=== PATIENT | male | born 1990 | race Caucasian/White ===

== ENCOUNTER 2023-12-27 06:04 | Emergency (ER) | payer BC, SELFPAY ==
[2023-12-27 06:05] VITALS: BMI 29.0
[2023-12-27 06:10] VITALS: BP 152/86
[2023-12-27] MEDS: DECADRON 10 MG IV (06:38)
[2023-12-27] MEDS: BENADRYL 50 MG IV (06:38)
[2023-12-27] MEDS: NSS 1000 IV (06:39)
[2023-12-27] MEDS: PEPCID 20 MG IV (06:39)
--- NOTE | 2023-12-27 07:02 | ED.GENMED ---
History of Present Illness
General
Chief Complaint: Allergic Reaction
Source: patient
Exam Limitations: none
Time Seen by Provider: 12/27/23 06:15
History of Present Illness
History of Present Illness:
33-year-old male stung by something to his left ear suddenly last evening. Swelling to the left ear some pain to the left ear major concern is he feels like his airway might be swollen on the left side overnight. Able to swallow but with some
pain. No fever or chills. No speech issues. No other complaints. No history of allergic reaction. No general hives or itching.
Past History
Past History
ED Past Medical History: None
ED Past Surgical History: Orthopedic
Review of Systems
Review of Systems
All Other Systems: Not applicable
Constitutional: Denies fever
Respiratory: Denies trouble breathing
Phy Exam
Physical Exam
Physical Exam:
GENERAL: Alert and oriented in no apparent distress
EYE: Orbits normal.
NECK: Supple, mild swelling towards the left mandible at the angle.
ENT: Pharynx without erythema. No uvula swelling. Airway clear clinically. No drooling or stridor. No trismus. Swelling and erythema to the left pinna. Canal normal. TM clear.
CARDIAC: Regular rate and rhythm without any obvious murmurs.
LUNGS: Clear breath sounds,normal
ABDOMEN: Soft, without focal tenderness or distention
NEUROLOGICAL: Alert and oriented , grossly non-focal
SKIN: Warm and dry, no hives or erythema
MUSCULOSKELETAL: No edema,no deformity.Good color
PSYCH: Normal and appropriate interaction.
Course
Orders/Labs/Results
Orders:
Orders
12/27/23 06:22
Cardiac Monitoring- Treatment ONCE
IV Insert/Care/Rem.- Treatment PRN
0.9% Sodium Chloride 1000 ml [Nss] 1,000 ml IV BOLUS
Dexamethasone Sod Phosphate [Decadron] 10 mg IV NOW STA
Diphenhydramine [Benadryl] 50 mg IV NOW STA
Famotidine [Pepcid] 20 mg IV NOW STA
Soft Tissue, Neck [CR Soft Tissue Neck ] Urgent
Comment:
Reason For Exam: Left neck swelling. Bee sting left ear
Pulse Ox/cont/shift [RESP] Stat
Quantity: 1
12/27/23 07:36
CeFAZolin 1 GRAM [Ancef] 1 gram in 5 ml IV NOW
Vital Signs
Initial and Last Documented VS:
Initial Vital Signs
Temp Pulse Resp BP Pulse Ox
98.3 F 98 16 152/86 100
12/27/23 06:10 12/27/23 06:10 12/27/23 06:10 12/27/23 06:10 12/27/23 06:10
Last Documented Vital Signs
Temp Pulse Resp BP Pulse Ox
98.2 F 71 17 107/66 99
12/27/23 09:03 12/27/23 09:03 12/27/23 09:03 12/27/23 09:03 12/27/23 09:03
MDM/Problems Addressed
Differential Diagnosis Includes:
Patient's reaction is a toxin reaction versus allergic reaction. Has some mild swelling of the left neck. However no drooling no stridor no trismus. Pulse ox is good. Lungs are clear and equal. Soft tissue lateral unremarkable. Will treat as
an allergic reaction with Benadryl H2 ivelisse and steroids. Do not feel racemic epinephrine will affect the symptoms. Likely has to hang in there with the swelling until the toxin is absorbed. Will observe for a few hours. Do not expect
significant improvement but just want to be sure his symptoms have not progressed.
*Radiology
Radiology exam reviewed: preliminary read by ED provider (Negative) and radiology read reviewed (Negative)
*Critical Care Note
Total Time (30-74mins, 75-104mins- exclusive of procedures): Not Applicable
Update Note
Update Note:
0715... Clinically is remained stable. No drooling no stridor. Vital signs stable. X-ray unremarkable. Highly doubt infectious component to this however with the erythema and swelling will cover.
0845.... Patient rechecked. Remains clinically stable. Stable vital signs. No drooling no stridor no trismus. Swelling has remained stable. Possibly some decreased erythema. Will continue observation
1115.... Patient is remained stable and is doing well. Swelling around the left mandible has essentially resolved. There is some mild erythema towards the left lateral neck. However again, no trismus stridor or drooling or airway issues. Patient
is stable for discharge to follow-up
ED Attending Note
-
Portions of this chart may have been created with voice recognition software.� Occasional wrong word or��sound alike� substitutions may have occurred due to the inherent limitations of voice recognition software.
Discharge Plan
Departure
Patient Disposition: Home (Routine Discharge)
Date of Disposition: 12/27/23
Time of Disposition: 11:15
Patient with high blood pressure during this ER visit?: No
Discharge Problem:
Suspect insect bite left ear, Secondary swelling and erythema
Instructions: Insect Bites and Stings ED
Prescriptions:
New
prednisone 50 mg tablet
50 mg PO DAILY Qty: 5 0RF
cephalexin 500 mg capsule
500 mg PO TID 7 Days Qty: 21 0RF
Referrals:
Mc Villalobos DO [Family Provider] - Follow up in 2-3 days
Activity Restrictions/Additional Instructions:
Your prescriptions were called to the pharmacy
Also take Benadryl and Pepcid
Keep your head elevated
Ice to the left facial area
Return sooner with increased pain swelling redness fever difficulty breathing or swallowing
Interventions
Interventions:
*Risk Screen - Suicide Last Done: 12/27/23 06:20
*General Assessment Last Done: 12/27/23 06:20
*Neglect/Abuse Screening Last Done: 12/27/23 06:20
ED- Fall Risk Assessment Last Done: 12/27/23 06:20
*ED COVID-19 Vaccine History Last Done: 12/27/23 06:20
ED- Cardiac Assessment Last Done: 12/27/23 06:18
ED- Pulmonary Assessment Last Done: 12/27/23 06:18
ED-Skin Assessment Last Done: 12/27/23 07:32
Discharge Date and Time
Print Language: DIVEHI
[2023-12-27] MEDS: ANCEF 5 IV (07:46)
[2023-12-27 09:03] VITALS: BP 107/66
[2023-12-27 11:30] VITALS: BP 120/70
== END 2023-12-27 11:31 | disposition home or self-care (01) ==
LOC: EMR 06:04
PROVIDERS: EMERGENCY PHYSICIAN Emergency Medicine; FAMILY PHYSICIAN Family Medicine
DX: R22.0 Localized swelling, mass and lump, head (principal); L53.9 Erythematous condition, unspecified
CPT/HCPCS: 99283; 70360

== ENCOUNTER 2024-11-25 13:24 | Emergency (ER) | payer BC, SELFPAY ==
[2024-11-25 13:31] VITALS: BP 137/79
--- NOTE | 2024-11-25 14:50 | ED.GENMED ---
History of Present Illness
General
Chief Complaint: Allergic Reaction
Source: patient
Exam Limitations: none
Time Seen by Provider: 11/25/24 14:28
Nursing documentation reviewed up to this point in time: agreed with
History of Present Illness
History of Present Illness:
Patient to ED with complaint of increasing pain, redness and swelling to right ant. thigh at site of bee sting. Bee sting occurred yesterday. Has had episodes in the past of large amt of swelling and erythema associated with stings. No history of
any respiratory issues. Brought self to ED for eval.
Past History
Past History
ED Past Medical History: None
ED Past Surgical History: Orthopedic
Review of Systems
Review of Systems
Allergies reviewed?: Yes
All Other Systems: ROS reviewed and negative except as documented in HPI and ROS
Constitutional: Reports no symptoms
EENT: Reports no symptoms
Respiratory: Reports no symptoms
Cardiac: Reports no symptoms
ABD/GI: Reports no symptoms
: Reports no symptoms
Musculoskeletal: Reports no symptoms
Skin: Reports other (Bee sting right ant thigh. large amt of erythema and swelling to thigh)
Neurological: Reports no symptoms
Psychiatric: Reports no symptoms
Phy Exam
General Physical Exam
General Presentation: well appearing and mild distress
General age: appears stated age
General Skin: warm and dry
General Habitus: normal
ENT Exam
ENT Exam: pharynx normal, neck supple, normocephalic and swallowing well
Cardiovascular Exam
Cardiovascular Exam: regular rate/rhythm and no edema
Pulmonary Exam
Pulmonary Exam: lungs clear, no respiratory distress and chest non tender
Musculoskeletal Exam
Musculoskeletal Exam: full ROM and neuro vasc intact
Skin Exam
Skin Exam: warm/dry and other (Bee sting right ant thigh. Large amt of erytnema and swelling to thigh. FUll ROM and sensation to leg. Pain with walking, bending due to swelling.)
Psychiatric Exam
Psychiatric Exam: normal mood/affect
Course
Orders/Labs/Results
Orders:
Orders
11/25/24 14:47
Prednisone [Deltasone] 40 mg PO NOW STA
Vital Signs
Initial and Last Documented VS:
Initial Vital Signs
Temp Pulse Resp BP Pulse Ox
98.4 F 89 16 137/79 100
11/25/24 13:31 11/25/24 13:31 11/25/24 13:31 11/25/24 13:31 11/25/24 13:31
Last Documented Vital Signs
Temp Pulse Resp BP Pulse Ox
98.4 F 89 16 137/79 100
11/25/24 13:31 11/25/24 13:31 11/25/24 13:31 11/25/24 13:31 11/25/24 13:31
*Pulse Oximetry
SaO2: 100
Oxygen Mode of Delivery: Room air
Patient hypoxic: no
*Critical Care Note
Total Time (30-74mins, 75-104mins- exclusive of procedures): Not Applicable
Update Note
Update Note:
Patient to ED for eval of erythema and swelling to right thigh at site of bee sting, consistent with inflammatory reaction. Swelling and erythema continues to expand. No respiratory issues. Will placeon PRednisone taper, first dose given in ED.
He is discharged home, given instructions on s/s to return to ED and he is agreeable to plan.
ED Attending Note
-
Portions of this chart may have been created with voice recognition software.� Occasional wrong word or��sound alike� substitutions may have occurred due to the inherent limitations of voice recognition software.
Discharge Plan
Departure
Patient Disposition: Home (Routine Discharge)
Date of Disposition: 11/25/24
Time of Disposition: 14:47
Patient with high blood pressure during this ER visit?: No
Condition: Good
Covid-19: Not Applicable
Discharge Problem:
Bee sting reaction
Instructions: Cold therapy for pain, Insect bites and stings - ED discharge instructions
Prescriptions:
New
prednisone 10 mg Tablet
See Rx Instructions .ROUTE .COMPLEX Qty: 30 0RF
Rx Instructions:
Take By Mouth:
40 mg daily x3 days, 30 mg daily x3 days,
20 mg daily x3 days, 10 mg daily x3 days.
No Action
prednisone 50 mg tablet
50 mg PO DAILY Qty: 5 0RF
cephalexin 500 mg capsule
500 mg PO TID 7 Days Qty: 21 0RF
Referrals:
Mc Villalobos DO [Family Provider, Family Practice]
Activity Restrictions/Additional Instructions:
Return to the emergency department immediately for any difficulty breathing or swallowing.
Interventions
Interventions:
*Risk Screen - Suicide Last Done: 11/25/24 13:32
*Neglect/Abuse Screening Last Done: 11/25/24 13:32
Discharge Date and Time
Print Language: SERBIAN
[2024-11-25] MEDS: DELTASONE 40 MG PO (15:12)
[2024-11-25 15:13] VITALS: BP 109/58
== END 2024-11-25 16:23 | disposition home or self-care (01) ==
LOC: EMR 13:24
PROVIDERS: EMERGENCY PHYSICIAN Student in an Organized Health Care Education/Training Program; FAMILY PHYSICIAN Family Medicine
DX: T63.441A Toxic effect of venom of bees, accidental (unintentional), initial encounter (principal); R22.41 Localized swelling, mass and lump, right lower limb; X58.XXXA Exposure to other specified factors, initial encounter
CPT/HCPCS: 99283

== ENCOUNTER 2025-02-24 12:01 | Emergency (ER) | payer BC, SELFPAY ==
[2025-02-24 12:13] VITALS: BP 133/78
--- NOTE | 2025-02-24 13:23 | ED.GENMED ---
History of Present Illness
General
Chief Complaint: Musculo-Skeletal Complaint
Source: patient
Time Seen by Provider: 02/24/25 13:12
History of Present Illness
History of Present Illness:
34-year-old male with no significant past medical history presents to the emergency department for evaluation after he fell for 2 separate popping sensations to his left bicep while lifting a piece of lumber out of his truck, states some mild
discomfort with pronation and supination as well as elbow flexion. No previous history of injury. Patient notes that there does not appear to be any obvious deformity the affected area. Patient is right-hand dominant.
Past History
Past History
ED Past Medical History: None
ED Past Surgical History: Orthopedic
Social History
Tobacco: Non-smoker
Alcohol: Occasional
Drug: None
Personal:
Living: with family
Employment: Employed
Review of Systems
Review of Systems
All Other Systems: ROS reviewed and negative except as documented in HPI and ROS
Phy Exam
Physical Exam
Physical Exam:
GENERAL: Alert , in no apparent distress
EYE: conjunctiva clear
Head: Normocephalic atraumatic
NECK: Supple,
ENT: mmm.
LUNGS: no acute respiratory distress
NEUROLOGICAL: Alert and oriented
SKIN: Warm and dry, skin intact. Small area of ecchymosis in the antecubital fossa no obvious deformity to the biceps brachii muscle, patient allows for full range of motion of the left upper extremity without difficulty but does have some
tenderness while performing pronation supination and elbow flexion. Extremity is otherwise warm and well-perfused and neurovascularly intact.
MUSCULOSKELETAL: well perfused.
PSYCH: Normal and appropriate interaction.
Scores
Heart Failure Risk
Heart Failure Risk Score: Not Applicable
Heart Score for Chest Pain Patients
STEMI patient?: Not applicable
Withdrawal Assessment of Alcohol
Withdrawal Assessment Completed?: Not applicable
Course
Orders/Labs/Results
Orders:
Orders
02/24/25 13:24
Sling Left-Treatment ONCE
Vital Signs
Initial and Last Documented VS:
Initial Vital Signs
Temp Pulse Resp BP Pulse Ox
99.3 F 84 18 133/78 98
02/24/25 12:13 02/24/25 12:13 02/24/25 12:13 02/24/25 12:13 02/24/25 12:13
Last Documented Vital Signs
Temp Pulse Resp BP Pulse Ox
99.3 F 84 18 133/78 98
02/24/25 12:13 02/24/25 12:13 02/24/25 12:13 02/24/25 12:13 02/24/25 13:24
MDM/Problems Addressed
Differential Diagnosis Includes:
Biceps muscle strain
Tendonopathy
Tendon rupture
No concern for fx/dislocation
MDM/Problems Addressed:
34-year-old male presenting the ER for evaluation of suspected biceps injury. Patient was lifting a heavy object out of his truck when injury occurred. No neurovascular abnormalities on exam. I did offer x-ray however patient declines which I
think is reasonable given I do not suspect any fracture or dislocation. Suspect muscle strain/tendon injury is most likely diagnosis. Will treat with a sling, NSAIDs, ice and outpatient information for orthopedics provided. Stable for discharge
home.
*Pulse Oximetry
SaO2: 98
Oxygen Mode of Delivery: Room air
Patient hypoxic: no
*Critical Care Note
Total Time (30-74mins, 75-104mins- exclusive of procedures): Not Applicable
ED Attending Note
-
Portions of this chart may have been created with voice recognition software.� Occasional wrong word or��sound alike� substitutions may have occurred due to the inherent limitations of voice recognition software.
Discharge Plan
Departure
Patient Disposition: Home (Routine Discharge)
Date of Disposition: 02/24/25
Time of Disposition: 13:23
Patient with high blood pressure during this ER visit?: No
Discharge Problem:
Traumatic injury of left biceps brachii muscle
Instructions: Biceps Tendon Rupture (DC)
Prescriptions:
No Action
prednisone 50 mg tablet
50 mg PO DAILY Qty: 5 0RF
cephalexin 500 mg capsule
500 mg PO TID 7 Days Qty: 21 0RF
prednisone 10 mg Tablet
See Rx Instructions .ROUTE .COMPLEX Qty: 30 0RF
Rx Instructions:
Take By Mouth:
40 mg daily x3 days, 30 mg daily x3 days,
20 mg daily x3 days, 10 mg daily x3 days.
Referrals:
Aime Candelario MD [Active, Orthopedics]
Fred Castillo MD [Active, Orthopedics]
Interventions
Interventions:
*Risk Screen - Suicide Last Done: 02/24/25 12:15
*General Assessment Last Done: 02/24/25 12:15
*Neglect/Abuse Screening Last Done: 02/24/25 12:15
*Nursing Disposition Last Done: 02/24/25 14:07
ED-Musculoskeletal Assessment Last Done: 02/24/25 14:05
Discharge Date and Time
Discharge Date/Time: 02/24/25 14:07
Print Language: FAROESE
== END 2025-02-24 14:07 | disposition home or self-care (01) ==
LOC: EMR 12:01
PROVIDERS: EMERGENCY PHYSICIAN Emergency Medicine; FAMILY PHYSICIAN Family Medicine
DX: S46.202A Unspecified injury of muscle, fascia and tendon of other parts of biceps, left arm, initial encounter (principal); X50.0XXA Overexertion from strenuous movement or load, initial encounter
CPT/HCPCS: 99282